=== PATIENT | male | born 2005 | race African-American/Black ===

== ENCOUNTER 2025-04-09 04:16 | Emergency (ER) | payer MEDICAID ==
[~2025-04-09] VITALS: Ht 182.9 cm; Wt 159.0 kg
[2025-04-09 04:21] VITALS: O2SAT 96
[2025-04-09] MEDS: ONDANSETRON HCL 4MG/2ML INJ IV STA (06:06)
[2025-04-09] MEDS: SODIUM CHLORIDE 0.9% 1,000 ML IV ONE (06:07)
[2025-04-09 06:23] LABS: BG BASE EXCESS -1.6 mmol/L (-2.0-3.0); BG DEOXYHEMOGLOBIN 5.3 % (0.0-5.0); BG FRACTION INSPIRED OXYGEN 21; BG HCO3 ACT 24.4 mmol/L (21.0-28.0); BG METHEMOGLOBIN 0.1 % (0.5-1.5); BG OXYGEN SATURATION 94.6 % (94.0-98.0); BG OXYHEMOGLOBIN 93.6 % (94.0-98.0); BG PCO2 45.6 mmHg (35.0-48.0); BG PH 7.346 (7.350-7.450); BG PO2 80.8 mmHg (83.0-108.0); BG SAMPLE SITE LEFT RADIAL; BG VENT MODE ROOM AIR
[2025-04-09 07:03] LABS: BASOPHILS % 0.6 % (0.0-2.0); DIFFERENTIAL COMMENT 0; EOSINOPHILS % 0.5 % (0.0-5.0); HEMATOCRIT. 42.6 % (42.0-52.0); HEMOGLOBIN. 14.4 g/dL (14.0-18.0); LYMPHOCYTES % 12.6 % (20.0-50.0); MEAN CORPUSCULAR HEMOGLOBIN 26.2 pg (28.0-32.0); MEAN CORPUSCULAR HGB CONC 33.9 g/dL (31.0-37.0); MEAN CORPUSCULAR VOLUME 77.3 fL (80.0-94.0); MEAN PLATELET VOLUME 8.6 fl (7.4-10.4); MONOCYTES % 4.5 % (2.0-8.0); NEUTROPHILS % 81.8 % (40.0-76.0); PLATELET 291 x1000/uL (130-400); RED BLOOD CELL COUNT 5.51 mill/uL (4.7-6.1); RED CELL DISTRIBUTION WIDTH 15.1 % (11.6-14.6); WHITE BLOOD COUNT 10.9 x1000/uL (4.5-11.0)
[2025-04-09 07:12] LABS: CARBON DIOXIDE 26 mEq/L (21-32); CHLORIDE 109 mEq/L (98-107); SODIUM 144 mEq/L (136-145)
[2025-04-09 07:13] LABS: CALCIUM 8.9 mg/dL (8.7-10.4)
[2025-04-09 07:17] LABS: CREATININE 0.9 mg/dL (0.6-1.3); GLUCOSE 104 mg/dL (70-105)
[2025-04-09 07:18] LABS: ETHANOL BLOOD 148 mg/dL (<10); TROPONIN I HIGH SENSITIVITY < 4 ng/L (3.0-53); UREA NITROGEN BLOOD 6 mg/dL (9-23)
[2025-04-09 10:03] VITALS: BP 114/84; PULSE 95; RESP 14; TEMP 36.5; O2SAT 94
== END 2025-04-09 10:27 | disposition left against medical advice (07) ==
LOC: ER 04:16 → EDBEDREQ 09:47 → ER 10:27 → CANBEDREQ 10:31
DX: R09.02 Hypoxemia (principal); F10.129 Alcohol abuse with intoxication, unspecified; J45.909 Unspecified asthma, uncomplicated; F12.90 Cannabis use, unspecified, uncomplicated; Z79.899 Other long term (current) drug therapy; Y90.6 Blood alcohol level of 120-199 mg/100 ml
CPT/HCPCS: 80048; 80320; 83880; 85025; 84484; 36415; 71045; 70450; 82805; 82375; 93005; 96361; 96374; 99285; 36600; J2405; J7030; Z7610; G0480

== ENCOUNTER 2025-06-07 12:35 | Emergency (ER) | payer MEDICAID ==
[~2025-06-07] VITALS: Ht 180.3 cm; Wt 153.0 kg
[2025-06-07 12:43] VITALS: O2SAT 98
[2025-06-07] MEDS: IBUPROFEN 800MG TABLET PO ONE (14:20)
[2025-06-07] MEDS ORDERED: IBUP-2029 MT (15:18)
[2025-06-07 15:33] VITALS: BP 133/86; PULSE 80; RESP 18; TEMP 36.6; O2SAT 99
== END 2025-06-07 15:36 | disposition home or self-care (01) ==
LOC: ER 12:35
DX: M77.02 Medial epicondylitis, left elbow (principal); F12.90 Cannabis use, unspecified, uncomplicated; Z79.899 Other long term (current) drug therapy; J45.909 Unspecified asthma, uncomplicated
CPT/HCPCS: 73080; 99283